=== PATIENT | female | born 1970 | race Hispanic/Latino ===

== ENCOUNTER 2018-10-29 16:51 | Emergency (ER) | payer SELFPAY ==
[2018-10-29 17:49] LABS: Absolute Lymphocytes (CBC) 1.4 K/uL (0.7-4.9); Absolute Monocytes 0.4 K/uL (0.1-1.3); Absolute Neutrophil 6.7 K/uL (1.8-8.0); Basophils % 0.4 % (0-1.3); Hematocrit 44.1 % (36.0-45.0); Lymphocytes % 16.3 % (15.3-44.8); MCH 32.9 pg (27.0-35.0); MCV 94.5 fL (80-100); MPV 7.9 fL (7.6-11.3); Monocytes % 4.4 % (3.3-12.3); RBC Red Blood Cell Count 4.66 M/uL (3.86-4.86)
[2018-10-29 17:53] LABS: Protime INR 1.05
[2018-10-29 18:12] LABS: ALT/SGPT 22 U/L (12-78); AST/SGOT 8 U/L (15-37); Albumin 4.4 g/dL (3.4-5.0); Alkaline Phosphatase 86 U/L (45-117); BUN Blood Urea Nitrogen 9 mg/dL (7-18); Bicarbonate 23 mmol/L (21-32); Bilirubin Direct 0.2 mg/dL (0-0.2); Bilirubin Total 0.6 mg/dL (0.2-1.0); Glucose Level 114 mg/dL (74-106); Potassium 3.4 mmol/L (3.5-5.1); Protein, Total 8.1 g/dL (6.4-8.2); Sodium Level 140 mmol/L (136-145)
[2018-10-29 18:19] LABS: Arterial Blood Carboxyhemoglob 2.8 % (0-1.5); Blood Gas Oxyhemoglobin 93.4 % (94-97); Blood O2 Saturation 97.5 % (92-98.5)
[2018-10-29 19:34] LABS: Barbiturates NEGATIVE (NEGATIVE); Benzodiazepines NEGATIVE (NEGATIVE); Cocaine NEGATIVE (NEGATIVE); METHAMPHETAM NEGATIVE (NEGATIVE); Methadone NEGATIVE (NEGATIVE); Opiates NEGATIVE (NEGATIVE); Phencyclidine NEGATIVE (NEGATIVE); THC Cannibis NEGATIVE (NEGATIVE)
--- NOTE | 2018-10-29 19:41 | RAD REPORT ---
EXAM DESCRIPTION: CT - Head Brain Wo Cont - 10/29/2018 7:34 pm CLINICAL HISTORY: CONFUSED Drowsiness COMPARISON: No comparisons TECHNIQUE: All CT scans are performed using dose optimization technique as appropriate and may inclu de automated exposure control or mA/KV adjustment according to patient size. FINDINGS: No intracranial hemorrhage, hydrocephalus or extra-axial fluid collection.No areas of brai n edema or evidence of midline shift. The paranasal sinuses and mastoids are clear. The calvarium is intact. IMPRESSION: No acute intracranial abnormality.
--- NOTE | 2018-10-29 19:42 | RAD REPORT ---
EXAM DESCRIPTION: CT - Thorax W/ Con CLINICAL HISTORY: Chest pain AMS COMPARISON: CTANGIO CHEST FOR PE dated 12/07/2013 FINDINGS: The lungs are clear. No pleural thickening or pleural effusion. No pneumothorax. No axillary, mediastinal or hilar adenopathy. No concerning bony finding. No gross upper abdominal finding. All CT scans are performed using dose optimization technique as appropriate and may include automated exposure control or mA/KV adjustment according to patient size. IMPRESSION: Negative study.
[2018-10-29] MEDS ORDERED: ACETAMINOPHEN 325 MG TABLET ONE (21:15)
[2018-10-29 22:27] LABS: Urine Blood 1+ (NEG); Urine Glucose NEGATIVE (NEG); Urine Protein NEGATIVE (NEG); Urine pH 7.5 (5.0-7.0)
--- NOTE | 2018-10-29 23:28 | EDPHYS ---
Physician Documentation [facility] Name: Joy Cook Age: 47 yrs Sex: Female : 1970 Arrival Date: 10/29/2018 Time: 16:56 Bed 19 Private MD: None, None ED Physician Joe Marie HPI: 10/29 18:25 This 47 yrs old Female presents to ER via Wheelchair with complaints of kdr Numbness - HANDS,ARMS,FEET. 18:25 The patient's problem is reported as altered mental status, weakness. Onset: The kdr symptoms/episode began/occurred suddenly, just prior to arrival. Duration: This was a single incident, the symptoms became persistent just prior to arrival. Context: the episode(s) was witnessed, by family, daughter, symptoms became apparent The daughter reports that the patient was driving the car when she began to have numbness and tingling in her upper extremities and then she became altered. The daughter had to take over the driving and then came to the hospital. This has not happened before, she has recently been seeing her doctor for multiple left breast nodules/masses. The symptoms are alleviated by nothing. The symptoms are aggravated by nothing. Associated signs and symptoms: Pertinent positives: confusion, tingling, weakness. Severity of symptoms: At their worst the symptoms were moderate severe incapacitating just prior to arrival, in the emergency department the symptoms are unchanged. Patient's baseline: Neuro: alert and fully oriented, Motor: no deficits, Ambulation: walks without assistance, Speech: normal, The patient has a previous history of. The patient has not experienced similar symptoms in the past. The patient has been recently seen by a physician: the patient's primary care provider. Historical: - Allergies: 17:07 No Known Allergies; ss - Home Meds: 17:07 None [Active]; ss - PMHx: 17:07 awaiting testing regarding breast cancer; ss - PSHx: 17:07 bilateral knee repairs; ss - Immunization history:: Adult Immunizations up to date. - Social history:: Smoking status: Patient uses tobacco products, 1 pp week. - Ebola Screening: : Patient denies exposure to infectious person Patient denies travel to an Ebola-affected area in the 21 days before illness onset. ROS: 18:25 Constitutional: Unable to obtain secondary to AMS kdr 18:25 Unable to obtain ROS due to altered mental status. Exam: 18:25 Constitutional: This is a well developed, well nourished patient who is awake, alert, kdr and in no acute distress. Head/Face: Normocephalic, atraumatic. Eyes: Pupils equal round and reactive to light, extra-ocular motions intact. Lids and lashes normal. Conjunctiva and sclera are non-icteric and not injected. Cornea within normal limits. Periorbital areas with no swelling, redness, or edema. Neck: Trachea midline, no thyromegaly or masses palpated, and no cervical lymphadenopathy. Supple, full range of motion without nuchal rigidity, or vertebral point tenderness. No Meningismus. Chest/axilla: Normal chest wall appearance and motion. Nontender with no deformity. No lesions are appreciated. Cardiovascular: Regular rate and rhythm with a normal S1 and S2. No gallops, murmurs, or rubs. Normal PMI, no JVD. No pulse deficits. Respiratory: Lungs have equal breath sounds bilaterally, clear to auscultation and percussion. No rales, rhonchi or wheezes noted. No increased work of breathing, no retractions or nasal flaring. Abdomen/GI: Soft, non-tender, with normal bowel sounds. No distension or tympany. No guarding or rebound. No evidence of tenderness throughout. Back: No spinal tenderness. No costovertebral tenderness. Full range of motion. Skin: Warm, dry with normal turgor. Normal color with no rashes, no lesions, and no evidence of cellulitis. MS/ Extremity: Pulses equal, no cyanosis. Neurovascular intact. Limited ROM of upper extrem,ities which Neuro: Awake and alert, GCS 15, oriented to person, place, time, and situation. Cranial nerves II-XII grossly intact. Motor strength 5/5 in all extremities. Sensory grossly intact. Cerebellar exam normal. Normal gait. Psych: Awake, alert, with orientation to person, place and time. Behavior, mood, and affect are within normal limits. Vital Signs: 17:07 BP 122 / 75; Pulse 113; Resp 26; Temp 97.0(TE); Pulse Ox 98% on R/A; Weight 58.97 kg; ss Height 5 ft. 6 in. (167.64 cm); Pain 6/10; 18:10 BP 116 / 72; Pulse 93; Resp 20; Pulse Ox 100% on R/A; Pain 5/10; em 19:10 BP 116 / 80; Pulse 92; Resp 17; Temp 97.1; Pulse Ox 98% on R/A; rr5 20:32 BP 107 / 71; Pulse 75; Resp 18; Pulse Ox 98% on R/A; mt 21:26 BP 101 / 74; Pulse 73; Resp 18; Pulse Ox 99% on R/A; mt 22:31 BP 98 / 71; Pulse 77; Resp 18; Pulse Ox 98% on R/A; mt 23:01 BP 98 / 62; Pulse 68; Resp 17; Pulse Ox 99% on R/A; rr5 23:30 BP 102 / 71; Pulse 70; Resp 17; Pulse Ox 99% on R/A; rr5 17:07 Body Mass Index 20.98 (58.97 kg, 167.64 cm) ss MDM: 19:34 Patient medically screened. gs 23:20 Data reviewed: vital signs, nurses notes, lab test result(s), radiologic studies. gs Response to treatment: the patient's symptoms have resolved after treatment, and as a result, I will discharge patient. ED course: pt has had this pain for a few months has not seen her pcp, today had carpel pedal spasm. workup today negative. pt asking for pain meds referred her to [facility]. 23:26 ED course: seen and examined back to baseline stable. 10/29 17:53 Order name: CBC with Automated Diff; Complete Time: 18:51 EDMS 10/29 18:01 Order name: Alcohol Serum/Plasma; Complete Time: 18:51 EDMS 10/29 18:07 Order name: Protime (+INR); Complete Time: 18:51 EDMS 10/29 18:07 Order name: PTT, Activated Partial Thromb; Complete Time: 18:51 EDMS 10/29 17:32 Order name: EKG; Complete Time: 17:33 ss 10/29 18:13 Order name: Basic Metabolic Panel; Complete Time: 18:51 EDMS 10/29 18:13 Order name: Liver (Hepatic) Function; Complete Time: 18:51 EDMS 10/29 18:13 Order name: Acetaminophen Level; Complete Time: 18:51 EDMS 10/29 18:20 Order name: Salicylates Level; Complete Time: 18:51 [facility] 10/29 18:29 Order name: ABG Arterial Blood Gas; Complete Time: 18:51 [facility] 10/29 18:54 Order name: CT Head Brain wo Cont [facility] 10/29 18:54 Order name: CT Chest W/ Con [facility] 10/29 19:31 Order name: Urine Dipstick--Ancillary (enter results) [facility] 10/29 19:31 Order name: Urine --Ancillary (enter results) [facility] 10/29 19:34 Order name: Urine Drug Screen; Complete Time: 22:14 [facility] 10/29 19:43 Order name: CT; Complete Time: 22:14 [facility] 10/29 19:44 Order name: CT; Complete Time: 22:14 [facility] 10/29 22:29 Order name: Urine --Ancillary; Complete Time: 23:23 [facility] 10/29 22:29 Order name: Urine Dipstick-Ancillary; Complete Time: 23:23 [facility] 10/29 17:32 Order name: Urine Test (obtain specimen); Complete Time: 20:41 10/29 17:32 Order name: EKG - Nurse/Tech; Complete Time: 20:41 10/29 17:32 Order name: IV Saline Lock; Complete Time: 20:41 10/29 17:32 Order name: Labs collected and sent; Complete Time: 20:41 10/29 17:32 Order name: Urine Dipstick-Ancillary (obtain specimen); Complete Time: 20:41 ss Administered Medications: 20:30 Drug: Tylenol 650 mg Route: PO; rr5 23:30 Follow up: Response: No adverse reaction; Marked relief of symptoms rr5 Disposition: 10/29/18 23:26 Discharged to Home. Impression: Weakness, Paresthesia of skin, Dorsalgia, unspecified. - Condition is Stable. - Discharge Instructions: Weakness, Fatigue, Paresthesia, Pljo-ia-Hcnl. - Family Work Release, Medication Reconciliation Form, Thank You Letter, Antibiotic Education, Prescription Opioid Use form. - Follow up: Diego Hanley MD; When: 2 - 3 days. Follow up: Armen Paredes MD; When: 2 - 3 days; Reason: Re-evaluation by your physician. Signatures: Dispatcher [employer] EDJose Juan Haley MD MD [facility] Summer Harris RN RN ss Joe Marie MD MD Herve Ruelas, RN RN rr5 Corrections: (The following items were deleted from the chart) 23:37 23:26 10/29/2018 23:26 Discharged to Home. Impression: Weakness; Paresthesia of skin; rr5 Dorsalgia, unspecified. Condition is Stable. Forms are Medication Reconciliation Form, Thank You Letter, Antibiotic Education, Prescription Opioid Use. Follow up: Diego Hanley; When: 2 - 3 days. Follow up: Armen Paredes; When: 2 - 3 days; Reason: Re-evaluation by your physician. gs
--- NOTE | 2018-10-29 23:28 | ER ---
Nurse's Notes [facility] Name: Joy Cook Age: 47 yrs Sex: Female : 1970 Arrival Date: 10/29/2018 Time: 16:56 Bed 19 Private MD: None, None Diagnosis: Weakness;Paresthesia of skin;Dorsalgia, unspecified Presentation: 10/29 16:56 Presenting complaint: Patient states: tingling and weakness to bilateral upper and ss lower extremities that began 30 minutes prior to arrival. Is becoming progressively worse. Transition of care: patient was not received from another setting of care. Onset of symptoms was October 29, 2018. Risk Assessment: Do you want to hurt yourself or someone else? Patient reports no desire to harm self or others. Initial Sepsis Screen: Does the patient meet any 2 criteria? No. Patient's initial sepsis screen is negative. Does the patient have a suspected source of infection? No. Patient's initial sepsis screen is negative. Care prior to arrival: None. 16:56 Method Of Arrival: Wheelchair ss 16:56 Acuity: SHANNA 2 ss Historical: - Allergies: 17:07 No Known Allergies; ss - Home Meds: 17:07 None [Active]; ss - PMHx: 17:07 awaiting testing regarding breast cancer; ss - PSHx: 17:07 bilateral knee repairs; ss - Immunization history:: Adult Immunizations up to date. - Social history:: Smoking status: Patient uses tobacco products, 1 pp week. - Ebola Screening: : Patient denies exposure to infectious person Patient denies travel to an Ebola-affected area in the 21 days before illness onset. Screenin:10 Abuse screen: Denies threats or abuse. Nutritional screening: No deficits noted. em Tuberculosis screening: No symptoms or risk factors identified. Fall Risk None identified. Assessment: 16:56 General: Appears uncomfortable, Behavior is drowsy, listless. Pain: Complains of pain ss in left breast Pain began unknown onset, has been going on for months Is continuous. Neuro: Level of Consciousness is awake, alert, obeys commands. Neuro: Reports paresthesias in right arm, left arm, right leg and left leg since 30 minutes prior to arrival to ED. Cardiovascular: Capillary refill is > 3 seconds is sluggish in bilateral fingers Patient's skin is warm and dry. Respiratory: Airway is patent Respiratory effort is even, unlabored, Respiratory pattern is regular, symmetrical, Breath sounds are clear bilaterally. Denies cough, shortness of breath labored breathing, pain with respiration, pain with cough, pain with movement. GI: Patient currently denies abdominal pain, diarrhea, nausea, vomiting. : No signs and/or symptoms were reported regarding the genitourinary system. EENT: Oral mucosa is moist. Throat is clear. Derm: Skin is pink, warm \T\ dry. Musculoskeletal: Swelling absent. 18:21 Reassessment: Patient appears in no apparent distress at this time. Patient and/or em family updated on plan of care and expected duration. Pain level reassessed. Patient is alert, oriented x 3, equal unlabored respirations, skin warm/dry/pink. rates pain 6/10 Patient states symptoms have improved. 19:10 General: Appears in no apparent distress. comfortable, Behavior is calm, cooperative, rr5 appropriate for age. Pain: Complains of pain in left breast area Pain currently is 8 out of 10 on a pain scale. Quality of pain is described as aching. Neuro: Level of Consciousness is awake, alert, obeys commands, Oriented to person, place, time, situation, Appropriate for age Collaborating Supervising Physician are equal bilaterally Moves all extremities. Full function. Cardiovascular: Capillary refill is > 3 seconds is sluggish in bilateral fingers. Respiratory: Airway is patent Respiratory effort is even, unlabored, Respiratory pattern is regular, symmetrical. GI: Patient currently denies. : No signs and/or symptoms were reported regarding the genitourinary system. EENT: Oral mucosa is moist. Throat is clear. Derm: No signs and/or symptoms reported regarding the dermatologic system. Musculoskeletal: Range of motion: intact in all extremities. 20:10 Reassessment: Patient appears in no apparent distress at this time. Patient and/or rr5 family updated on plan of care and expected duration. Pain level reassessed. awaiting for CT report. 22:00 Reassessment: awaiting for review by dr. jeri painter no complaints made. rr5 23:20 Reassessment: Patient appears in no apparent distress at this time. Patient denies pain rr5 at this time. Patient states feeling better. Patient states symptoms have improved. Vital Signs: 17:07 BP 122 / 75; Pulse 113; Resp 26; Temp 97.0(TE); Pulse Ox 98% on R/A; Weight 58.97 kg; Height 5 ft. 6 in. (167.64 cm); Pain 6/10; 18:10 BP 116 / 72; Pulse 93; Resp 20; Pulse Ox 100% on R/A; Pain 5/10; em 19:10 BP 116 / 80; Pulse 92; Resp 17; Temp 97.1; Pulse Ox 98% on R/A; rr5 20:32 BP 107 / 71; Pulse 75; Resp 18; Pulse Ox 98% on R/A; mt 21:26 BP 101 / 74; Pulse 73; Resp 18; Pulse Ox 99% on R/A; mt 22:31 BP 98 / 71; Pulse 77; Resp 18; Pulse Ox 98% on R/A; mt 23:01 BP 98 / 62; Pulse 68; Resp 17; Pulse Ox 99% on R/A; rr5 23:30 BP 102 / 71; Pulse 70; Resp 17; Pulse Ox 99% on R/A; rr5 17:07 Body Mass Index 20.98 (58.97 kg, 167.64 cm) ED Course: 16:56 Patient arrived in ED. sb2 16:56 None, None is Private Physician. sb2 17:06 Triage completed. ss 17:07 Arm band placed on right wrist. ss 17:15 Jose Juan Vizcaino MD is Attending Physician. kdr 17:16 Bandar Akhtar LVN is Primary Nurse. em 17:39 EKG done, by target aircraft technician. reviewed by Jose Juan Vizcaino MD. sm3 18:00 Initial lab(s) drawn, by mo, sent to lab. Inserted saline lock: 20 gauge in right em forearm, using aseptic technique. Blood collected. 18:25 Patient has correct armband on for positive identification. Placed in gown. Bed in low em position. Call light in reach. 18:25 No provider procedures requiring assistance completed. em 19:[address] via wheelchair. vm2 19:34 Attending Physician role handed off by Jose Juan Vizcaino MD gs 19:34 Joe Marie MD is Attending Physician. gs 19:35 CT completed. Patient tolerated procedure well. Patient moved back from CT. vm2 23:05 IV discontinued, intact, bleeding controlled, No redness/swelling at site. Pressure rr5 dressing applied. 23:24 Diego Hanley MD is Referral Physician. 23:25 Armen Paredes MD is Referral Physician. Administered Medications: 20:30 Drug: Tylenol 650 mg Route: PO; rr5 23:30 Follow up: Response: No adverse reaction; Marked relief of symptoms rr5 Outcome: 23:26 Discharge ordered by MD. 23:30 Discharged to home ambulatory, with family. rr5 23:30 Condition: stable 23:30 Discharge instructions given to patient, family, Instructed on discharge instructions, follow up and referral plans. Demonstrated understanding of instructions, follow-up care. 23:37 Patient left the ED. rr5 Signatures: Jose Juan Vizcaino MD MD kdr Munoz, Edgar, PRODUCTION HARDENER PRODUCTION HARDENER em Summer Harris, RN RN Shari Logan 2 Mariela Back mt, Gregory, MD MD Arlene Brenner 2 Liana Slater 3 Herve Ruelas, RN RN rr5 Corrections: (The following items were deleted from the chart) 19:16 18:21 Reassessment: Patient appears in no apparent distress at this time. Patient em and/or family updated on plan of care and expected duration. Pain level reassessed. Patient is alert, oriented x 3, equal unlabored respirations, skin warm/dry/pink. Patient states symptoms have improved. em
[2018-10-30 02:02] VITALS: TEMP 97.1
[2018-10-30 02:07] VITALS: BP 98/62; O2SAT 99
--- NOTE | 2018-10-30 08:29 | EKG ---
Test Date: 2018-10-29 Test Time: 17:10:09 Gandy Dancer: ARACELY MEASUREMENT RESULTS: Intervals: Rate: 117 DC: 162 QRSD: 80 QT: 334 QTc: 465 [place]: P: 54 DC: 162 QRS: 222 T: 65 INTERPRETIVE STATEMENTS: Sinus tachycardia Inferior infarct, age undetermined Anterolateral infarct, age undetermined Abnormal ECG Compared to ECG 12/07/2013 02:21:55 Myocardial infarct finding now present Sinus rhythm no longer present Electronically Signed On 10-30-18 08:28:46 RECOVERY OPERATOR by Medardo Bolviar
== END 2018-10-29 23:37 | disposition home or self-care (01) ==
LOC: ER 16:51
DX: R20.2 Paresthesia of skin (principal); R53.1 Weakness; M54.9 Dorsalgia, unspecified
CPT/HCPCS: 36415; 70450; 71260; 80048; 80076; 80307; 80320; 80329; 81003; 81025; 82805; 82962; 85025; 85610; 85730; 93005; 99284; Q9967